=== PATIENT | female | born 1965 | race Caucasian/White ===

== ENCOUNTER 2021-09-08 11:23 | Inpatient (IN) | payer MEDICARE, OTHER ==
[~2021-09-08] VITALS: Ht 162.6 cm; Wt 54.1 kg
[~2021-09-08 11:23] MED LIST: ECOTRIN81 MG PO; LASIX20 MG PO; LASIX40 MG PO; LOPRESSOR 25 MG25 MG PO; OMEPRAZOLE40 MG PO; PLAVIX 75 MG TA75 MG PO; POTASSIUM CHLO20 ME1 PO; ZESTRIL10 MG PO; ZOCOR40 MG PO; ZOFRAN4 MG PO
[2021-09-08 12:21] LABS: HEMOGLOBIN 12.8 gm/dl (12.3-15.3); RED BLOOD COUNT 4.28 M/UL (4.00-5.10); WHITE BLOOD COUNT 6.7 K/UL (4.5-11.0)
[2021-09-08 12:56] LABS: BUN/CREATININE RATIO 23 (0-10)
[2021-09-08] MEDS ORDERED: WARFARIN SODIU2.5 MG PO (17:14)
[2021-09-09 05:45] LABS: HEMOGLOBIN 14.2 gm/dl (12.3-15.3); RED BLOOD COUNT 4.7 M/UL (4.00-5.10); WHITE BLOOD COUNT 6.4 K/UL (4.5-11.0)
[2021-09-09 06:41] LABS: BUN/CREATININE RATIO 24 (0-10)
[2021-09-10 06:41] LABS: HEMOGLOBIN 12.5 gm/dl (12.3-15.3); RED BLOOD COUNT 4.24 M/UL (4.00-5.10); WHITE BLOOD COUNT 5.1 K/UL (4.5-11.0)
[2021-09-10 07:16] LABS: BUN/CREATININE RATIO 25 (0-10)
[2021-09-10] MEDS ORDERED: FUROSEMIDE20 MG PO (16:34)
[2021-09-10] MEDS ORDERED: ATORVASTATIN CA20 MG PO (16:34)
[2021-09-10] MEDS ORDERED: LOPRESSOR 25 MG25 MG PO (16:34)
[2021-09-10] MEDS ORDERED: ENOXAPARIN60 MG/0.6 SC (16:34)
== END 2021-09-10 18:15 | disposition home or self-care (01) | DRG 280 ==
LOC: ER1 11:23 → PROG CARE 16:43 → CDU 16:43 → PROG CARE 18:04
PROVIDERS: Physician Assistant; ADMIT Internal Medicine
PROC: B2181ZZ Fluoroscopy of Left Internal Mammary Bypass Graft using Low Osmolar Contrast (ICD-10-PCS; principal; 2021-09-09)
PROC: B2111ZZ Fluoroscopy of Multiple Coronary Arteries using Low Osmolar Contrast (ICD-10-PCS; 2021-09-09)
PROC: B2171ZZ Fluoroscopy of Right Internal Mammary Bypass Graft using Low Osmolar Contrast (ICD-10-PCS; 2021-09-09)
DX: I21.4 Non-ST elevation (NSTEMI) myocardial infarction (principal); I50.23 Acute on chronic systolic (congestive) heart failure; J98.11 Atelectasis; J44.9 Chronic obstructive pulmonary disease, unspecified; I73.9 Peripheral vascular disease, unspecified; Z20.822 Contact with and (suspected) exposure to COVID-19; I11.0 Hypertensive heart disease with heart failure; I25.10 Atherosclerotic heart disease of native coronary artery without angina pectoris; F17.210 Nicotine dependence, cigarettes, uncomplicated; I25.5 Ischemic cardiomyopathy; R91.8 Other nonspecific abnormal finding of lung field; Z86.718 Personal history of other venous thrombosis and embolism; Z92.21 Personal history of antineoplastic chemotherapy; Z95.5 Presence of coronary angioplasty implant and graft; Z88.8 Allergy status to other drugs, medicaments and biological substances; Z82.49 Family history of ischemic heart disease and other diseases of the circulatory system; Z86.73 Personal history of transient ischemic attack (TIA), and cerebral infarction without residual deficits; Z85.41 Personal history of malignant neoplasm of cervix uteri; Z79.82 Long term (current) use of aspirin; Z79.899 Other long term (current) drug therapy; Z79.01 Long term (current) use of anticoagulants; Z86.711 Personal history of pulmonary embolism
CPT/HCPCS: ECHO; 36221; 36415; 36600; 71045; 80048; 80053; 80061; 82550; 82553; 82803; 83735; 83874; 83880; 84484; 85025; 85610; 85730; 87040; 93005; 93306; 96374; 99152; 99153; 99285; C1769; J1644; J1650; J1940; J2250; J3010; J7040; Q9967; U0002

== ENCOUNTER 2021-09-17 23:57 | Emergency (ER) | payer MEDICARE, OTHER ==
[~2021-09-17 23:57] MED LIST changes: +ATORVASTATIN CA20 MG PO; +ENOXAPARIN60 MG/0.6 SC; +FUROSEMIDE20 MG PO; +WARFARIN SODIU2.5 MG PO
[2021-09-18 01:23] LABS: HEMOGLOBIN 11.1 gm/dl (12.3-15.3); RED BLOOD COUNT 3.77 M/UL (4.00-5.10); WHITE BLOOD COUNT 16.7 K/UL (4.5-11.0)
== END 2021-09-18 04:00 | disposition short-term general hospital (02) ==
LOC: ER1 23:57
PROVIDERS: Family Medicine
DX: I46.9 Cardiac arrest, cause unspecified (principal); I42.9 Cardiomyopathy, unspecified; Z20.822 Contact with and (suspected) exposure to COVID-19
CPT/HCPCS: 36600; 70450; 71045; 80053; 82550; 82553; 82803; 83605; 83735; 83874; 84100; 84484; 85025; 85610; 85730; 86850; 86900; 86901; 87040; 92950; 93005; 94002; 99285; J2250; J7030; U0002